=== PATIENT | male | born 1940 | race Caucasian/White ===

== ENCOUNTER 2016-12-08 18:31 | Outpatient (CLI) | payer MEDICARE, OTHER | END 2016-12-08 18:32 | disposition home or self-care (01) | DX: E11.9 Type 2 diabetes mellitus without complications (principal); I50.9 Heart failure, unspecified; I10 Essential (primary) hypertension ==

== ENCOUNTER 2017-03-09 08:24 | Outpatient (CLI) | payer MEDICARE, OTHER | END 2017-03-09 08:25 | disposition home or self-care (01) | DX: E11.9 Type 2 diabetes mellitus without complications (principal) ==

== ENCOUNTER 2017-06-09 08:54 | Outpatient (CLI) | payer MEDICARE, OTHER ==
[2017-06-09 13:02] LABS: HEMOGLOBIN A1C 0.92 g/dL
== END 2017-06-09 08:55 ==
LOC: LAB.WCP 08:54
PROVIDERS: ATTEND Family Medicine
DX: E11.9 Type 2 diabetes mellitus without complications (principal)
CPT/HCPCS: 36415; 83036

== ENCOUNTER 2017-06-17 06:01 | Day surgery (SDC) | payer MEDICARE, OTHER ==
[2017-06-17] MEDS ORDERED: KETOROLAC 0.45% OPHTH DROPS ONE (06:37)
[2017-06-17] MEDS ORDERED: PROPARACAINE 0.5% OPHTH DROPS 15 ML ONE (06:37)
[2017-06-17] MEDS ORDERED: PHENYLEPHRINE 2.5% OPHTH 2 ML DROPS ONE (06:37)
[2017-06-17] MEDS ORDERED: CYCLOPENTOLATE 1% OPHTH DROPS 2 ML ONE (06:37)
[2017-06-17] MEDS ORDERED: TIMOLOL 0.5% OPHTH DROPS ONE (06:40)
[2017-06-17] MEDS ORDERED: BRIMONIDINE 0.2% OPHTH DROPS 5 ML ONE (06:40)
[2017-06-17] MEDS ORDERED: PHENYLEPHRINE 2.5% OPHTH 2 ML DROPS OPTH ONE (06:45)
[2017-06-17] MEDS ORDERED: CYCLOPENTOLATE 1% OPHTH DROPS 2 ML OPTH ONE (06:45)
[2017-06-17] MEDS ORDERED: PROPARACAINE 0.5% OPHTH DROPS 15 ML OPTH ONE ×3 (06:45→07:34)
[2017-06-17] MEDS ORDERED: KETOROLAC 0.45% OPHTH DROPS OPTH ONE (06:45)
[2017-06-17] MEDS ORDERED: LACTATED RINGERS 500 ML IV ONE (06:57)
[2017-06-17] MEDS ORDERED: BRIMONIDINE 0.2% OPHTH DROPS 5 ML OPTH ONE ×2 (07:27→07:34)
[2017-06-17] MEDS ORDERED: EPINEPHrine 1 MG/ML AMP IVP ONE ×2 (07:27→07:34)
[2017-06-17] MEDS ORDERED: CHONDR SULF/HYALURONATE SYRINGE IO ONE ×2 (07:28→07:34)
[2017-06-17] MEDS ORDERED: TRIAMCIN/MOXIFLOX/VANCO 1 ML VIAL IO ONE ×2 (07:28)
[2017-06-17] MEDS ORDERED: TIMOLOL 0.5% OPHTH DROPS OPTH ONE ×2 (07:28→07:34)
[2017-06-17] MEDS ORDERED: BSS/LIDOCAINE/EPINEPHRINE 1 ML SYRINGE IO ONE ×3 (07:28→07:34)
[2017-06-17] MEDS ORDERED: LABETALOL 5 MG/1 ML 20 ML MDV IV ONE (07:41)
[2017-06-17] MEDS ORDERED: MIDAZOLAM 2 MG/2 ML VIAL IVP ONE (07:41)
--- NOTE | 2017-06-17 08:23 | OPERATIVE REPORT ---
DATE OF SURGERY: 06/17/2017 00:00:00 PREOPERATIVE DIAGNOSIS: Visually significant cataract, right eye. This was his first cataract surgery . POSTOPERATIVE DIAGNOSIS: Visually significant cataract, right eye. This was his first cataract surger y. NAME OF PROCEDURE: Phacoemulsification with posterior chamber intraocular lens implant, right eye. SURGEON: Ulises Pace MD ANESTHESIA: Monitored anesthesia care. COMPLICATIONS: None. OPERATIVE INDICATIONS: This is a 77-year-old man with progressive vision loss in the right eye due to 2+ nuclear sclerotic cataract. Best corrected visual acuity was 20/40 with glare to 20/400 in the ri ght eye. Indications for surgery were difficulty seeing words on a computer screen, difficulty seeing words or game scores on TV, difficulty seeing street signs close-up, difficulty driving in low light or at night, and difficulty driving at night because of headlights from other vehicles and/or street lights. He was consented at length concerning the risks and benefits of cataract surgery after which he expressed a desire to proceed with surgery. OPERATIVE PROCEDURE: The patient was taken into OR #2 and placed under monitored anesthesia care. A s urgical time-out was conducted confirming correct patient, correct procedure and correct surgical sit e. He was given topical anesthesia and then prepped and draped in the usual sterile fashion. The eye was entered at the 12 and 9 o'clock positions. Intracameral Shugarcaine was injected into the anterio r chamber followed by Viscoat. A continuous tear curvilinear capsulorrhexis was performed. The nucleu s was hydrodissected and phacoemulsified. The cortex was evacuated using automated infusion aspiratio n. Of note, because of intermediate dilation, I almost used a Malyugin ring but chose not to. Unfortu nately, the iris to come down during the procedure, but did not result in any complications. The iris came down inside the capsulorrhexis. Provisc was injected into the capsular bag and a 15.5 diopter i ntraocular lens inserted into the bag. Approximately 0.7 mL of a mixture of triamcinolone, moxifloxac in, and vancomycin was injected subconjunctivally in the superior quadrant for infection and inflamma tion prophylaxis. I/A was used to evacuate the viscoelastic materials. The eye was inflated; however, the wound would not stop leaking so a single 10-0 nylon suture was placed across the wound to make t he eye watertight. The eye was inflated to physiologic pressure. The patient was taken from the [facility] room in good condition and given postoperative instructions. JOB #: [id number] EXT JOB #:[id number]
[2017-06-17 08:41] VITALS: BP 142/72
== END 2017-06-17 06:02 | disposition home or self-care (01) ==
LOC: SDS 06:01
PROVIDERS: ATTEND Ophthalmology
PROC: 08RJ3JZ Replacement of Right Lens with Synthetic Substitute, Percutaneous Approach (ICD-10-PCS; principal; 2017-06-17 07:30)
DX: E11.36 Type 2 diabetes mellitus with diabetic cataract (principal); H25.811 Combined forms of age-related cataract, right eye; I11.0 Hypertensive heart disease with heart failure; I50.9 Heart failure, unspecified; E78.5 Hyperlipidemia, unspecified; M10.9 Gout, unspecified; K21.9 Gastro-esophageal reflux disease without esophagitis; Z79.84 Long term (current) use of oral hypoglycemic drugs; Z95.0 Presence of cardiac pacemaker; Z87.891 Personal history of nicotine dependence
CPT/HCPCS: 66984; A9270; J3490; V2632

== ENCOUNTER 2017-08-04 13:25 | Outpatient (CLI) | payer MEDICARE, OTHER | END 2017-08-04 13:26 | disposition home or self-care (01) | LOC: SC 13:25 | PROVIDERS: ATTEND Nurse Practitioner Family | DX: G47.33 Obstructive sleep apnea (adult) (pediatric) (principal) | CPT/HCPCS: 99214; G0463; 99212 ==

== ENCOUNTER 2017-09-22 08:44 | Outpatient (CLI) | payer MEDICARE, OTHER ==
[2017-09-22 13:04] LABS: ALBUMIN/GLOBULIN RATIO 1.1 (1.0-2.2); BILIRUBIN,TOTAL 0.4 mg/dL (0.2-1.0); BUN - BLOOD UREA NITROGEN 28 mg/dL (6-20); CALCIUM 9.1 mg/dL (8.5-10.3); CARBON DIOXIDE - CO2 23 mmol/L (21-32); CHLORIDE 107 mmol/L (101-111); CREATININE 1.2 mg/dL (0.6-1.2); GFR - MDRD 59 (>89); GLUCOSE 157 mg/dL (70-100); POTASSIUM 4.2 mmol/L (3.5-5.0); SODIUM 137 mmol/L (135-145); TOTAL PROTEIN 7.4 g/dL (6.7-8.2)
[2017-09-22 13:14] LABS: HEMOGLOBIN A1C 0.8 g/dL
[2017-09-22 13:39] LABS: THYROID STIMULATING HORMONE 12.53 uIU/mL (0.34-5.60)
== END 2017-09-22 08:45 | disposition home or self-care (01) ==
LOC: LAB.WCP 08:44
PROVIDERS: ATTEND Family Medicine
DX: E11.9 Type 2 diabetes mellitus without complications (principal)
CPT/HCPCS: 36415; 80053; 83036; 84439; 84443

== ENCOUNTER 2017-12-14 08:00 | Outpatient (CLI) | payer MEDICARE, OTHER ==
[2017-12-14 12:50] LABS: HB2 TOTAL 14.7 g/dL; HEMOGLOBIN A1C 0.92 g/dL; HEMOGLOBIN A1C % 7.9 % (4.6-6.2)
== END 2017-12-14 08:01 | disposition home or self-care (01) ==
LOC: LAB.WCP 08:00
PROVIDERS: ATTEND Family Medicine
DX: E11.9 Type 2 diabetes mellitus without complications (principal); E03.9 Hypothyroidism, unspecified; I10 Essential (primary) hypertension; E78.00 Pure hypercholesterolemia, unspecified
CPT/HCPCS: 36415; 83036; 84443

== ENCOUNTER 2018-03-08 08:00 | Outpatient (CLI) | payer MEDICARE, OTHER ==
[2018-03-08 13:09] LABS: HB2 TOTAL 14.4 g/dL; HEMOGLOBIN A1C 1.02 g/dL; HEMOGLOBIN A1C % 8.6 % (4.6-6.2)
[2018-03-08 13:17] LABS: ALBUMIN 3.9 g/dL (3.2-5.5); ALBUMIN/GLOBULIN RATIO 1.2 (1.0-2.2); ALKALINE PHOSPHATASE 31 IU/L (42-121); ALT ALANINE AMINOTRANSFERASE 29 IU/L (10-60); AST ASPARTATE AMINOTRANSFERASE 30 IU/L (10-42); BILIRUBIN,TOTAL 0.6 mg/dL (0.2-1.0); BUN - BLOOD UREA NITROGEN 30 mg/dL (6-20); CALCIUM 9.3 mg/dL (8.5-10.3); CARBON DIOXIDE - CO2 23 mmol/L (21-32); CHLORIDE 102 mmol/L (101-111); CHOL/HDL RATIO 7.6 (<5.0); CHOLESTEROL 175 mg/dL; CREATININE 1.1 mg/dL (0.6-1.2); GFR - MDRD 65 (>89); GLUCOSE 277 mg/dL (70-100); HDL CHOLESTEROL 23 mg/dL; SODIUM 134 mmol/L (135-145); TOTAL PROTEIN 7.1 g/dL (6.7-8.2)
[2018-03-08 13:40] LABS: LDL CHOLESTEROL,DIRECT 38 mg/dL; LDLD/HDL RATIO 1.7 (<3.6)
== END 2018-03-08 08:01 | disposition home or self-care (01) ==
LOC: LAB.WCP 08:00
PROVIDERS: ATTEND Family Medicine
DX: E03.9 Hypothyroidism, unspecified (principal); E11.9 Type 2 diabetes mellitus without complications; I50.9 Heart failure, unspecified; I10 Essential (primary) hypertension; Z12.5 Encounter for screening for malignant neoplasm of prostate; E78.00 Pure hypercholesterolemia, unspecified
CPT/HCPCS: 36415; 80053; 80061; 82043; 83036; 83721; 84443; G0103; 84153